=== PATIENT | male | born 1965 | race Caucasian/White ===

== ENCOUNTER 2022-07-30 16:11 | Emergency (ER) | payer OTHER, SELFPAY ==
[2022-07-30 16:23] VITALS: BP 115/75; PULSE 94; RESP 20; TEMP 36.1; O2SAT 99
--- NOTE | 2022-07-30 16:30 | ED.BACK ---
HPI - Back Pain/Injury General Chief Complaint: Back Pain/Injury Stated Complaint: low to mid back pain; chills Time Seen by Provider: 07/30/22 16:32 Source: patient Mode of arrival: ambulatory Limitations: no limitations History of Present Illness HPI Narrative: 56-year-old male presented for complaint of right mid to lower back pain for 3 days. He denies injury. He denies numbness, tingling, weakness of the lower extremities or change in gait. Endorses urinary frequency. Denies hematuria, urgency, hesitancy or flank pain. Patient also endorses yesterday onset generalized malaise, chills, and sinus congestion. Denies shortness of breath, wheezing, nausea, vomiting, diarrhea. He has not taking anything for the symptoms. He takes diclofenac regularly for bilateral knee pain. He was prescribed doxycycline on 07/24/2022 for a stye. Related Data Home Medications Medication Instructions Recorded Confirmed lisinopril 20 1 tablet PO DAILY 07/19/19 07/30/22 mg-hydrochlorothiazide 25 mg tablet Allergies Allergy/AdvReac Type Severity Reaction Status Date / Time No Known Allergies Allergy Verified 07/30/22 16:20 Review of Systems Review of Systems: per HPI All systems reviewed & are unremarkable except as noted in HPI and below PMFSH Past Medical History Medical History (Updated 07/30/22 @ 17:21 by Angelia Cutler APRN) Asthma sport induced GERD (gastroesophageal reflux disease) HTN (hypertension) Social History Social History Smoking status: Never smoker Comments At time of signature, I have reviewed and agree with nursing past medical, surgical, social and family history unless otherwise noted. Please see nursing chart for further information. There is no relevant family history pertinent to the presenting complaint Exam Narrative: GENERAL: Well-appearing, well-nourished, and in no acute distress. HEAD: Normocephalic, atraumatic. EYES: EOMI. No redness or drainage. Conjunctivae normal. ENT: Mucous membranes pink and moist. No rhinorrhea. TMs normal bilaterally. Throat normal. Uvula midline. NECK: Normal AROM. Supple. No lymphadenopathy. CHEST: Clear to auscultation. HEART: Regular rate and rhythm. No murmur appreciated. Normal peripheral pulses. ABDOMEN: Soft, nontender, nondistended, normal active bowel sounds. No CVA tenderness. MUSCULOSKELETAL: No bony tenderness. No VPT. Right para spinal tenderness into mid right back at approx T8. No erythema or vesicals noted. EXTREMITIES: Normal range of motion. No edema. SKIN: Warm, mild sweaty; no rash. Capillary refill normal. Normal skin turgor. NEURO: Alert and oriented x3. Gait steady. PSYCH: Normal affect. Course Course Emergency Course: Patient is aware of diagnosis, understands and agrees to treatment plan. Anticipatory guidance given. Patient agrees to follow-up as directed and is aware of reasons to seek care at the emergency department. Portions of this record may have been created with voice recognition software Level of Care: Express Care Visit Vital Signs Vital signs: Vital Signs Temperature 97.0 F L 07/30/22 16:23 Pulse Rate 94 07/30/22 16:23 Respiratory Rate 20 07/30/22 16:23 Blood Pressure 115/75 07/30/22 16:23 Pulse Oximetry 99 07/30/22 16:23 Oxygen Delivery Room Air 07/30/22 16:23 Temperature 97.0 F L 07/30/22 16:23 Pulse Rate 94 07/30/22 16:23 Respiratory Rate 20 07/30/22 16:23 Blood Pressure 115/75 07/30/22 16:23 Pulse Oximetry 99 07/30/22 16:23 Oxygen Delivery Room Air 07/30/22 16:23 MDM - Back Pain/Injury MDM Narrative Medical decision making narrative: Result of COVID and flu test reviewed with patient. Reviewed at length s/s to go to the ER and discussed possible etiologies. Advised supportive measures. Pt is appropriate for outpt treatment and f/u. Differential Diagnosis Differential diagnos
== END 2022-07-30 17:18 | disposition home or self-care (01) ==
PROVIDERS: Emergency Provider Nurse Practitioner Family
DX: M54.50 Low back pain, unspecified (principal); Z20.822 Contact with and (suspected) exposure to COVID-19; J45.990 Exercise induced bronchospasm; K21.9 Gastro-esophageal reflux disease without esophagitis; I10 Essential (primary) hypertension
CPT/HCPCS: 81003; 87426; 87804; 99213; C9803; G0463

== ENCOUNTER 2023-04-29 13:15 | Emergency (ER) | payer OTHER, SELFPAY ==
[2023-04-29 13:28] VITALS: BP 159/107; PULSE 107; RESP 18; TEMP 36.3; O2SAT 97
--- NOTE | 2023-04-29 13:54 | ED.GENADULT ---
HPI - General Adult General Chief complaint: Upper Respiratory Infection Stated complaint: sinus issue Source: patient Mode of arrival: ambulatory Limitations: no limitations History of Present Illness HPI narrative: Patient presents for evaluation of sinus symptoms for last 3-4 weeks. Symptoms include increased sinus pressure, congestion and thick yellow drainage from the nares. He has a history of recurrent sinusitis status post sinus surgery. He states his current symptoms are consistent with those previously experience with bacterial sinusitis. He is not taking any medication for his symptoms. No recent sick contacts. He does not smoke. Related Data Home Medications Medication Instructions Recorded Confirmed lisinopril 20 1 tablet PO DAILY 07/19/19 04/29/23 mg-hydrochlorothiazide 25 mg tablet doxycycline hyclate 50 mg capsule 50 mg PO DIRECTED 04/29/23 04/29/23 Allergies Allergy/AdvReac Type Severity Reaction Status Date / Time No Known Allergies Allergy Verified 04/29/23 13:28 Review of Systems Review of Systems: CONSTITUTIONAL: Denies fever, chills, or sweats. EYES: Denies visual changes, redness, or discharge. ENT: Reports sinus congestion, increased sinus pressure, and thick yellow drainage from his nares CARDIOVASCULAR: Denies chest pain, palpitations, or edema. RESPIRATORY: Denies cough or dyspnea. GASTROINTESTINAL: Denies abdominal pain, nausea, vomiting, or diarrhea. GENITOURINARY: Denies dysuria or hematuria. SKIN: Denies rash or itching. MUSCULOSKELETAL: Denies back pain, joint pain, or myalgia. NEUROLOGIC: Denies headache, numbness, dizziness, or weakness. PSYCHIATRIC: Denies anxiety or depression. [facility] Past Medical History Medical History (Updated 04/29/23 @ 13:57 by ZACKARY Ortiz, ESVIN) Asthma sport induced GERD (gastroesophageal reflux disease) HTN (hypertension) Surgical History Surgical History History of sinus surgery Family History Family History (Updated 04/29/23 @ 13:57 by ZACKARY Ortiz, ESVIN) Mother Family history non-contributory Social History Social History Smoking status: Never smoker Substance use: never Living arrangements: with family Gender identity (if verbalized by the patient): Male Spiritual care concerns: No Exam Narrative: GENERAL: Well-appearing, well-nourished, and in no acute distress. HEAD: Normocephalic, atraumatic. EYES: PERRLA and EOMI. ENT: Bilateral maxillary and frontal sinus tenderness. There is thick yellow discharge in both nares. Mucous membranes moist. Oropharynx without tonsillar hypertrophy exudate or other lesions. Bilateral TMs pearly bautista nonbulging NECK: Supple. No adenopathy or masses. No carotid bruits or JVD CHEST: Clear to auscultation. No respiratory distress. No wheezes rales or rhonchi HEART: Regular rate and rhythm. No murmur heard. Normal peripheral pulses. ABDOMEN: Soft, nontender, nondistended, normal active bowel sounds. EXTREMITIES: Normal range of motion. No edema. SKIN: Warm, dry, no rash. NEURO: No focal deficits. Alert and oriented x3. PSYCH: Normal mood and affect. Course Course Emergency Course: This is a 57-year-old male who presented for evaluation of sinus symptoms. He meets criteria for ABRS based upon duration of time in which he has been symptomatic and the quality of his discharge. He has not responded well to Augmentin in the past. Will discharge with azithromycin. Increase hydration. [id number] agents for symptom management. Follow up with primary provider. Go to the ER for worsening symptoms. Patient in agreement with plan of care. Level of Care: Express Care Visit Vital Signs Vital signs: Vital Signs Temperature 36.3 C L 04/29/23 13:28 Pulse Rate 107 H 04/29/23 13:28 Respiratory Rate 18 04/29/23 13:
[2023-04-29 14:00] VITALS: BP 154/72
== END 2023-04-29 14:00 | disposition home or self-care (01) ==
PROVIDERS: Emergency Provider Nurse Practitioner
DX: J01.90 Acute sinusitis, unspecified (principal); J45.990 Exercise induced bronchospasm; K21.9 Gastro-esophageal reflux disease without esophagitis; I10 Essential (primary) hypertension
CPT/HCPCS: 99213; G0463

== ENCOUNTER 2025-02-21 15:42 | Emergency (ER) | payer OTHER, SELFPAY ==
--- NOTE | ~2025-02-21 | XR_ITS ---
EXAM: XR tibia fibula RT 2V, XR tibia fibula LT 2V DATE: 02/21/2025 16:17 HISTORY: crush injury prox anterior swelling . COMPARISON: None available. FINDINGS: Normal mineralization. No fracture or dislocation. Chronic appearing periosteal reaction v ersus artifact from vascular calcification adjacent to the medial tibial cortex of the junction of th e proximal and middle thirds of the left tibia. No lytic or blastic lesion. Partially visualized bila teral knee arthroplasties. Mild degenerative changes in the bilateral ankles. No erosion. Bilateral a nterior soft tissue swelling. No subcutaneous gas or radiopaque foreign body. IMPRESSION: No acute osseous finding in the left right tibia/fibula. Reviewed, dictated and finalized at location K. IMPRESSION: No acute osseous finding in the left right tibia/fibula.
[2025-02-21 15:54] VITALS: BP 140/89; PULSE 80; RESP 16; TEMP 36.8; O2SAT 96
--- NOTE | 2025-02-21 16:39 | ED_ITS ---
HPI - Extremity Injury (Lower) General Chief Complaint: Extremity Injury, Lower Stated Complaint: right and left leg injury Time Seen by Provider: 02/21/25 16:15 Source: patient and RN notes reviewed Mode of arrival: ambulatory Limitations: no limitations History of Present Illness HPI Narrative: 59-year-old male Presents Express Care complaining of injury to bilateral lower extremities. Patient reports since earlier this morning while he was they were cutting a large pallet when it fell off the fork left striking the patient and is upper shins. Patient reports the abduct weight approximately 300-400 lb. Dominic fernandes was not trapped by the object was able to back away after the initial strike. Patient reports swelling to the bilateral upper shins. Patient reports mild pain. Patient denies any pain with bearing weight bilateral feet. Patient has taken Tylenol ibuprofen use ice prior to arrival. Patient denies any numbness, tingling or any other injuries. Patient denies any significant past medical history. Related Data Home Medications ?Medication ?Instructions ?Recorded ?Confirmed ?Last Taken ?Type lisinopril 20 1 tablet PO DAILY 07/19/19 04/29/23 Unknown History mg-hydrochlorothiazide 25 mg tablet doxycycline hyclate 50 mg capsule 50 mg PO DIRECTED 04/29/23 04/29/23 Unknown History Allergies Allergy/AdvReac Type Severity Reaction Status Date / Time No Known Allergies Allergy Verified 02/21/25 15:44 Review of Systems Review of Systems: CONSTITUTIONAL: Denies fever, chills, or sweats. EYES: Denies visual changes, redness, or discharge. ENT: Denies rhinorrhea, congestion, sore throat, or otalgia. CARDIOVASCULAR: Denies chest pain, palpitations, or edema. RESPIRATORY: Denies cough or dyspnea. GASTROINTESTINAL: Denies abdominal pain, nausea, vomiting, or diarrhea. GENITOURINARY: Denies dysuria or hematuria. SKIN: Denies rash, wound, or itching. MUSCULOSKELETAL: Denies back pain, joint pain, or myalgia. Positive for bilateral lower leg injury and swelling NEUROLOGIC: Denies headache, numbness, or weakness. PSYCHIATRIC: Denies anxiety or depression. All other systems reviewed are negative, except as documented in HPI. [facility] Past Medical History Medical History GERD (gastroesophageal reflux disease) Asthma sport induced HTN (hypertension) Surgical History Surgical History History of sinus surgery Family History Family History Mother Family history non-contributory Social History Social History Smoking status: Never smoker Substance use: never Living arrangements: with family Gender identity (if verbalized by the patient): Male Spiritual care concerns: No Comments At the time of my signature, I reviewed and agree with the nursing past medical, surgical, social, and family history. There is no relevant family history pertinent to the patient complaint. Exam Narrative: GENERAL: This is a well-nourished, well-developed adult, in no apparent distress. They are non ill-appearing, nontoxic appearing. HEAD: normocephalic, atraumatic. EYES: Sclera clear/white. Vision is grossly intact. Conjunctiva normal. Extraocular movement intact. EARS: External ears normal Hearing grossly intact. NOSE: External nose normal THROAT: Mucous membranes moist NECK: Neck supple CARDIOVASCULAR: Regular rate and rhythm RESPIRATORY: Respiratory rate normal, respiratory effort nonlabored, no respiratory distress NEURO: awake, alert, and oriented to person, place and time. There were no obvious focal neurologic abnormalities. EXTREMITIES: Bilateral lower extremities below the knee: No obvious deformity. There is swelling present to the anterior upper surface of the lower extremity below the knee. Mild tenderness to palpation. No bruising or redness. No wounds or sores. Capillary refill less than 3 seconds. Bilateral pedal Pulse 2 +palpable. Normal sensation. Neurovascular status intact distal injury. Patient is able to wiggle his toes. Patient can feel me touch the tips of his toes. Normal dorsiflexion and plantar flexion of foot. BACK: Nontender without deformity. Course Course Emergency Course: Portions of this record may have been created with voice recognition software Level of Care: Express Care Visit Vital Signs Vital signs: Vital Signs Temperature 98.3 F 02/21/25 15:54 Pulse Rate 80 02/21/25 15:54 Respiratory Rate 16 02/21/25 15:54 Blood Pressure 140/89 02/21/25 15:54 Pulse Oximetry 96 02/21/25 15:54 Oxygen Delivery Room Air 02/21/25 15:54 Temperature 98.3 F 02/21/25 15:54 Pulse Rate 80 02/21/25 15:54 Respiratory Rate 16 02/21/25 15:54 Blood Pressure 140/89 02/21/25 15:54 Pulse Oximetry 96 02/21/25 15:54 Oxygen Delivery Room Air 02/21/25 15:54 Reviewed MDM - Extremity Injury (Lower) MDM Narrative Medical decision making narrative: Given mechanism of injury will go ahead and obtain imaging to rule any fractures. Obtain x-rays of bilateral tibia/fibula. No evidence of fracture or acute findings to bilateral tibia/fibula. Likely hematomas related to a crush injury. Patient given Raymond wrap for compression. Recommend rice therapy. Discussed physical exam findings. Advised supportive measures and signs/symptoms to go to the ER. Pt is appropriate for outpt treatment and f/u. Differential Diagnosis Differential diagnosis: Likely other (Tibia fracture, fibula fracture, crush injury, contusion, hematoma) Imaging Data Radiologist's impression: ITS Impressions Tibia/Fibula X-Ray 02/21/25 16:37 IMPRESSION: No acute osseous finding in the left right tibia/fibula. Tibia/Fibula X-Ray 02/21/25 16:37 IMPRESSION: No acute osseous finding in the left right tibia/fibula. Critical Care Time Critical Care Time Critical Care Time: No Discharge Plan Discharge Clinical Impression: Hematoma of right lower leg, Hematoma of left lower leg, Crush injury Patient Disposition: Home Condition: Stable Instructions: Hematoma (ED), Crush Injury (ED) Additional Instructions: The x-ray of your right and left tibia/fibula or negative for any fractures or acute findings. Rest and elevate the leg; bear weight as tolerated Apply ice 15-20 minute intervals several times a day Keep it wrapped with RAYMOND Motrin 600mg -800mg every 6 to 8 hours, alternate with Tylenol 1000mg every 6 to 8 hours as needed Follow up with your primary care provider as needed in 1-2 weeks specially pain persists Please go to the ER if you developed worsening swelling, severe uncontrollable pain to your lower legs, cold or blue extremities are unable to move her legs Patient Language: Chinese Prescriptions: No Action lisinopril-hydrochlorothiazide 20-25 mg Tablet 1 tablet PO DAILY doxycycline hyclate 50 mg capsule 50 mg PO DIRECTED azithromycin 250 mg tablet See Rx Instructions .ROUTE .COMPLEX Qty: 6 0RF Rx Instructions: For 250 mg dose pack: take 500 mg today (day 1), then 250 mg for 4 days (days 2-5) Follow-up/Referrals: Melisa,Hilario [Other] Time of Disposition: 16:55
== END 2025-02-21 17:00 | disposition home or self-care (01) ==
DX: S80.12XA Contusion of left lower leg, initial encounter (principal); S80.11XA Contusion of right lower leg, initial encounter; W20.8XXA Other cause of strike by thrown, projected or falling object, initial encounter; I10 Essential (primary) hypertension; J45.990 Exercise induced bronchospasm; K21.9 Gastro-esophageal reflux disease without esophagitis
CPT/HCPCS: 73590; 99214; G0463